=== PATIENT | male | born 1995 ===

== ENCOUNTER 2020-11-20 15:24 | Outpatient (CLI) | payer OTHER ==
--- NOTE | 2020-11-20 16:58 | MRI Report ---
PROCEDURE: Lumbar Spine W/O INDICATIONS: LOW BACK PAIN TECHNIQUE: Noncontrast sagittal T1 spin echo and T2 fast echo, sagittal STIR, axial T1 and T2 fast spin echo thr ough the lumbar spine. In cases with scoliosis, additional coronal T2 fast spin echo may be performe d. COMPARISON: None. FINDINGS: Image quality: Motion artifact is noted. Alignment and Curvature: There is normal bony alignment. Bone Marrow: Marrow is of normal overall signal. No acute vertebral body compression fractures. Spinal Cord: Conus medullaris terminates at the L1 level. Visualized cord demonstrates normal signa l and size. Paraspinous Soft Tissues: No paravertebral masses. T12-L1: Normal in appearance. L1-L2: Normal in appearance. L2-L3: The disc height and disc signal are well preserved. Mild disc bulge is seen. Mild bilateral neural foraminal narrowing is seen. No significant central canal narrowing is seen. L3-L4: Mild loss of disc height and disc signal are seen. Mild to moderate disc bulge is seen. Mi ld to moderate facet hypertrophy is seen. There is mild to moderate bilateral neuroforaminal narrowin g seen. No significant central canal narrowing can be seen. L4-L5: The disc height is well-preserved. There is loss of disc signal seen. Moderate disc bulge is seen, with a central disc protrusion. Moderate facet hypertrophy is seen. Moderate bilateral neur al foraminal narrowing is seen. Mild central canal narrowing is seen. L5-S1: Mild to moderate loss of disc height and disc signal can be seen. There is moderate disc bul ge seen, with a central disc protrusion. Mild to moderate facet hypertrophy can be seen. There is mod erate to severe bilateral neuroforaminal narrowing seen. Compression is seen upon the exiting nerve r oots. Moderate central canal narrowing is seen. IMPRESSION: Premature lumbar spine degenerative changes are seen, which are worst at the L5-S1 level . Reviewed by: Santiago Mayes MD on 11/20/2020 3:57 PM ALEE Approved by: Santiago Mayes MD on 11/20/2020 3:57 PM ALEE Station ID: [id number]
== END 2020-11-20 15:25 | disposition home or self-care (01) ==
LOC: DI 15:24
PROVIDERS: ATTEND Physician Assistant
DX: M47.816 Spondylosis without myelopathy or radiculopathy, lumbar region (principal); M47.817 Spondylosis without myelopathy or radiculopathy, lumbosacral region; M51.26 Other intervertebral disc displacement, lumbar region; M51.27 Other intervertebral disc displacement, lumbosacral region